=== PATIENT | female | born 1995 | race Caucasian/White ===

== ENCOUNTER 2018-07-07 22:09 | Emergency (ER) | payer OTHER ==
[~2018-07-07] VITALS: Ht 157.5 cm; Wt 50.0 kg
[2018-07-07 22:15] VITALS: Ht 157.5 cm; Wt 50.0 kg
[2018-07-07 22:46] LABS: APPEARANCE SL CLDY (CLEAR); COLOR STRAW (YELLOW); NITRITE NEGATIVE (NEGATIVE); PROTEIN TRACE mg/dL (NEGATIVE); SPECIFIC GRAVITY 1.015 (1.005-1.020)
[2018-07-07 22:47] LABS: BILIRUBIN NEGATIVE (NEGATIVE); GLUCOSE NEGATIVE (NEGATIVE); KETONE NEGATIVE (NEGATIVE); UROBILINOGEN NORMAL (NORMAL)
[2018-07-07 22:49] LABS: BACTERIA MODERATE /hpf (NONE SEEN); EPITHELIAL CELLS 0-5 /hpf (0-5); RED CELLS - URINE 0-5 /hpf (0-5)
[2018-07-07 22:51] LABS: HCG URINE NEGATIVE (NEGATIVE)
[2018-07-07 23:31] LABS: HEMATOCRIT 37.6 % (36.0-48.0); HEMOGLOBIN 12.8 g/dL (12-16); LYMPHOCYTES 20.1 % (15-50); MCH 28.7 pg (26.0-34.0); MCV 84.3 fL (80.0-100.0); MEAN PLATELET VOLUME 8.8 fL (7.4-10.4); NEUTROPHILS 67.8 % (40-80); PLATELET COUNT 354 10x3/uL (130-400); RBC 4.46 10x6/uL (4.00-5.40); WBC 12.7 10x3/uL (4.8-10.8)
[2018-07-07 23:50] LABS: ALKALINE PHOSPHATASE 95 U/L (46-116); ALT (SGPT) 19 U/L (10-68); AMYLASE - SERUM 36 U/L (25-115); BILIRUBIN - TOTAL 0.32 mg/dL (0.2-1.3); CALC OSMOLALITY 275 mosm/kg (275-300); CALCIUM 8.4 mg/dL (8.5-10.1); CARBON DIOXIDE 29.1 mmol/L (21.0-32.0); CHLORIDE - SERUM 102 mmol/L (98-107); CREATININE - SERUM 0.7 mg/dL (0.6-1.3); GLUCOSE 72 mg/dL (74-106); LIPASE 73 U/L (73-393); PROTEIN - SERUM 7.3 g/dL (6.4-8.2); SODIUM 140 mmol/L (136-145); UREA NITROGEN 6 mg/dL (7-18); eGFR NON AFRICAN AMERICAN > 90 mL/min (90-120)
[2018-07-08 02:09] VITALS: BP 110/67
[2018-07-10 15:15] LABS: CHLAMYDIA TRACHOMATIS, NAA Negative (Negative)
== END 2018-07-08 02:09 | disposition home or self-care (01) ==
LOC: D.ER 22:09
PROVIDERS: Family Medicine
DX: K59.00 Constipation, unspecified (principal); N39.0 Urinary tract infection, site not specified

== ENCOUNTER 2020-06-21 00:50 | Observation (INO) | payer OTHER ==
[~2020-06-21] VITALS: Ht 157.5 cm; Wt 68.2 kg
[2020-06-21 01:43] LABS: BASOPHILS 0.3 % (0-2); EOSINOPHILS 2.5 % (0-7); HEMATOCRIT 41.4 % (36.0-48.0); HEMOGLOBIN 13.8 g/dL (12-16); IMMATURE GRANULOCYTES 0.4 % (0-5); LYMPHOCYTE ABS# 1.81 10x3/uL (1.18-3.74); LYMPHOCYTES 15.4 % (15-50); MCH 27.9 pg (26.0-34.0); MCHC 33.3 g/dL (31.0-37.0); MCV 83.6 fL (80.0-100.0); MEAN PLATELET VOLUME 10.8 fL (7.4-10.4); MONOCYTES 11.8 % (2-11); NEUTROPHIL ABS# 8.16 10x3/uL (1.56-6.13); NEUTROPHILS 69.6 % (40-80); PLATELET COUNT 158 10x3/uL (130-400); RBC 4.95 10x6/uL (4.00-5.40); RDW 13.5 % (11.5-14.5); WBC 11.7 10x3/uL (4.8-10.8)
[2020-06-21 01:50] LABS: CALC OSMOLALITY 270 mosm/kg (275-300); CALCIUM 9.5 mg/dL (8.5-10.1); CARBON DIOXIDE 21.9 mmol/L (21.0-32.0); CHLORIDE - SERUM 100 mmol/L (98-107); CREATININE - SERUM 0.7 mg/dL (0.6-1.3); GLUCOSE 88 mg/dL (74-106); POTASSIUM - SERUM 4.1 mmol/L (3.5-5.1); SODIUM 135 mmol/L (136-145); UREA NITROGEN 18 mg/dL (7-18); eGFR NON AFRICAN AMERICAN > 90 mL/min (90-120)
[2020-06-21 01:56] LABS: UDS - AMPHET NEGATIVE QUAL (NEGATIVE); UDS - BARB NEGATIVE QUAL (NEGATIVE); UDS - BENZO NEGATIVE QUAL (NEGATIVE); UDS - COCAINE NEGATIVE QUAL (NEGATIVE); UDS - OPIATE NEGATIVE QUAL (NEGATIVE); UDS - PCP NEGATIVE QUAL (NEGATIVE); UDS - THC NEGATIVE QUAL (NEGATIVE)
[2020-06-21 01:56] LABS: ALBUMIN 2.6 g/dL (3.4-5.0); ALKALINE PHOSPHATASE 223 U/L (30-120); ALT (SGPT) 21 U/L (10-68); BILIRUBIN - TOTAL 0.32 mg/dL (0.2-1.3)
[2020-06-21 02:03] LABS: BILIRUBIN NEGATIVE (NEGATIVE); KETONE NEGATIVE (NEGATIVE); NITRITE NEGATIVE (NEGATIVE); UROBILINOGEN NORMAL mg/dL (< 2)
[2020-06-21 02:04] LABS: BACTERIA FEW HPF (NONE SEEN); SQUAMOUS EPITHELIAL 0-5 HPF (0-4); WHITE CELLS - URINE 0-5 HPF (0-4)
[2020-06-21] MEDS ORDERED: PRENAVITE1 TAB PO (03:38)
[2020-06-21 03:54] VITALS: BP 128/92; Ht 157.5 cm; Wt 68.2 kg
[2020-06-22 08:13] LABS: RAPID PLASMA REAGIN Non Reactive (Non Reactive)
[2020-06-22 10:12] LABS: HGB SOLUBILITY (SICKLE SCREEN) Negative (Negative)
[2020-06-22 11:11] LABS: HEPATITIS C ANTIBODY <0.1 S/CO RAT (0.0-0.9)
[2020-06-22 13:12] LABS: RUBELLA IGG <0.90 index (Immune >0.99)
== END 2020-06-22 01:55 | disposition home or self-care (01) ==
LOC: D.LDO 00:50 → D.LD 02:15 → OBSVTIME 02:15 → D.LD 10:36 → D.LDO 10:36 → D.LD 06-22 01:55 → D.LDO 06-22 01:55
PROVIDERS: ADMIT Obstetrics & Gynecology; ATTEND Obstetrics & Gynecology
DX: O36.8130 Decreased fetal movements, third trimester, not applicable or unspecified (principal); Z3A.37 37 weeks gestation of pregnancy

== ENCOUNTER 2020-06-23 11:15 | Inpatient (IN) | payer OTHER ==
[~2020-06-23] VITALS: Ht 157.5 cm; Wt 71.7 kg
[~2020-06-23 11:15] MED LIST: PRENAVITE1 TAB PO
[2020-06-23 12:56] VITALS: BP 123/92; Ht 157.5 cm; Wt 71.7 kg
[2020-06-23 14:00] LABS: BILIRUBIN NEGATIVE (NEGATIVE); KETONE NEGATIVE (NEGATIVE); NITRITE NEGATIVE (NEGATIVE); UROBILINOGEN NORMAL mg/dL (< 2)
[2020-06-23 14:01] LABS: WHITE CELLS - URINE 0-5 HPF (0-4)
[2020-06-23 14:02] LABS: BACTERIA FEW HPF (NONE SEEN); SQUAMOUS EPITHELIAL 0-5 HPF (0-4)
[2020-06-23 14:05] LABS: UDS - AMPHET NEGATIVE QUAL (NEGATIVE); UDS - BARB NEGATIVE QUAL (NEGATIVE); UDS - BENZO NEGATIVE QUAL (NEGATIVE); UDS - COCAINE NEGATIVE QUAL (NEGATIVE); UDS - OPIATE NEGATIVE QUAL (NEGATIVE); UDS - PCP NEGATIVE QUAL (NEGATIVE); UDS - THC NEGATIVE QUAL (NEGATIVE)
[2020-06-23 14:26] LABS: HEMATOCRIT 35.9 % (36.0-48.0); HEMOGLOBIN 12.1 g/dL (12-16); MCH 28.3 pg (26.0-34.0); MCHC 33.7 g/dL (31.0-37.0); MCV 84.1 fL (80.0-100.0); MEAN PLATELET VOLUME 11.3 fL (7.4-10.4); RBC 4.27 10x6/uL (4.00-5.40); RDW 13.4 % (11.5-14.5); WBC 11.1 10x3/uL (4.8-10.8)
[2020-06-24 06:11] LABS: RAPID PLASMA REAGIN Non Reactive (Non Reactive)
--- NOTE | 2020-06-24 15:58 | NUR ---
VIABLE MALE DELIVERED VIA NVD BY DR. RODRÍGUEZ WITH SPONTANEOUS RESP. 3 VESSEL CORD CLAMPED AND CUT BY . PLACED ON MOM ABDOMEN. MOUTH SUCTIONED WITH BULB SYRINGE. TAKEN TO PRE HEATED WARMER AND DRIED AND STIMULATED. TONE GOOD. RESP 60'S AND UNLABORED WITH NO S/S OF DISTRESS PRESENT AT THIS TIME. COLOR PINK ON R/A. TEMP 98(R).
--- NOTE | 2020-06-24 16:10 | NUR ---
ACTIVE AND ALERT. ID BANDS #[id number] PLACED ON RIGHT ARM AND RIGHT LEG AND ON MOM AND DAD WRIST. HUGS BAND #[id number] PLACED ON INFATN LEFT LEG. SWADDLED IN BLANKET AND HAT ON HEAD. TAKEN TO MOM BY DAD FOR BONDING. INFANT WAS GIVEN AND OR 9 AND 9 WITH 1 OFF FOR COLOR AT 1 MIN AND 5 MIN.
--- NOTE | 2020-06-24 16:54 | NUR ---
D/S 65 MG/DL PER HEEL STICK. TOLERATED WELL. RET TO MOM ARMS FOR FEEDING AND SKIN TO SKIN. TEMP AT THIS TIME 97.6(R).
--- NOTE | 2020-06-24 17:20 | NUR ---
TEMP 97.1(R). MOM FED 10ML FORMULA. TAKEN TO NS AND PLACED UNDER WARMER FOR ADDED WARMTH AND OBSERVATION. FED 10ML FORMULA UNDER WARMER. ALERT AND ACTIVE. COLOR WNL.
[2020-06-24 19:25] VITALS: BP 126/72
--- NOTE | 2020-06-24 19:25 | NUR ---
RN TO PT ROOM FOR SHIFT ASSESSMENT, VSS. PT DENIES ANY PAIN AT THIS TIME. FUNDUS FIRM, MIDLINE, 2 BELOW, SCANT RUBRA LOCHIA, NO CLOTS, PT PROVIDED WITH NEW GOWN, PADS, AND BRIEFS. LINENS CHANGED AT THIS TIME, PT REQUEST ICE WATER, ICE WATER PROVIDED TO PT. PT DENIES ANY OTHER NEEDS. BED IN LOWEST POSITION, SIDE RAILS UPX2, CALL LIGHT IN REACH. INFANT IN NURSERY.
--- NOTE | 2020-06-24 21:32 | NUR ---
RN TO PT BEDSIDE, SIGNIFICANT OTHER ON COUCH, PT SITTING UP IN BED WATCHING TV AT THIS TIME, PT DENIES ANY CURRENT NEEDS.
--- NOTE | 2020-06-24 22:10 | NUR ---
INFANT BACK OUT TO ROOM VIA CRIB AFTER TUBE FEEDING. INSTRUCTED MOM REGARDING REPLACEMENT OF OGT THAT INFANT HAD PULLED AND NGT BEING PLACED TO SEE IF THIS WILL HELP WITH FEEDING.
--- NOTE | 2020-06-24 23:13 | NUR ---
RN TO PT BEDSIDE, PT IN BED HOLDING/BONDING WITH , SIGNIFICANT OTHER AT BEDSIDE. PT DENIES ANY CURRENT NEEDS.
[2020-06-24 23:42] VITALS: BP 121/81
--- NOTE | 2020-06-24 23:42 | NUR ---
RN TO PT BEDSIDE. VSS. PT SITTING UP IN BED WITH IN ARMS. FUNDUS FIRM, MIDLINE, 2 BELOW, SCANT RUBRA LOCHIA, NO CLOTS.
--- NOTE | 2020-06-25 02:58 | NUR ---
RN TO PT BEDSIDE, PT SLEEPING AT THIS TIME, SIGNIFICANT OTHER SLEEPING ON COUCH. INFANT IN CRIB AT BEDSIDE.
[2020-06-25 05:38] LABS: BASOPHILS 0.1 % (0-2); EOSINOPHILS 0.5 % (0-7); HEMATOCRIT 31.9 % (36.0-48.0); HEMOGLOBIN 10.6 g/dL (12-16); IMMATURE GRANULOCYTES 0.3 % (0-5); LYMPHOCYTES 13.8 % (15-50); MCH 27.5 pg (26.0-34.0); MCHC 33.2 g/dL (31.0-37.0); MCV 82.9 fL (80.0-100.0); MEAN PLATELET VOLUME 11.2 fL (7.4-10.4); MONOCYTES 14.6 % (2-11); NEUTROPHIL ABS# 10.73 10x3/uL (1.56-6.13); NEUTROPHILS 70.7 % (40-80); PLATELET COUNT 134 10x3/uL (130-400); RBC 3.85 10x6/uL (4.00-5.40); RDW 13.3 % (11.5-14.5)
[2020-06-25 05:41] LABS: WBC 15.2 10x3/uL (4.8-10.8)
[2020-06-25 05:50] VITALS: BP 120/80
--- NOTE | 2020-06-25 05:59 | NUR ---
RN TO PT BEDSIDE, COMPLETE BEDDING CHANGE AT THIS TIME. PT DENIES ANY OTHER NEEDS. FUNDUS IS FIRM, MIDLINE, 2 BELOW, SCANT RUBRA LOCHIA.
[2020-06-25 07:50] VITALS: BP 123/88
--- NOTE | 2020-06-25 07:50 | NUR ---
PATIENT ASSESSMENT COMPLETED AT PATIENTS BEDSIDE. PATIENT DENIES NEEDS AT THIS TIME. VSS. FUNDUS FIRM AND MIDLINE 1 BELOW UMBILICUS. BLEEDING SCANT TO LIGHT. PLAN OF CARE UPDATED AT PATIENTS BEDSIDE. PATIENT DENIES QUESTIONS OR CONCERNS WITH INFORMATION GIVEN. PATIENT DENIES PAIN. SIDE RAILS UP X2, BED IN LOW POSITION, CALL LIGHT WITHIN REACH.
--- NOTE | 2020-06-25 17:31 | NUR ---
DR DELGADO CALLED AND DISCHARGE HOME WITH ORDER RECEIVED.
--- NOTE | 2020-06-25 18:33 | NUR ---
PATIENT TO BE DISCHARGED HOME IN STABLE CONDITION TO SELF CARE. DISCHARGE INSTRUCTIONS PROVIDED INCLUDING WHEN TO MAKE FOLLOW UP APPOINTMENT. IV REMOVED USING ASPETIC TECHNIQUE. PATIENT DENIES QUESTIONS OR CONCERNS WITH INFORMATION GIVEN.
--- NOTE | 2020-06-25 18:45 | NUR ---
PT. DISCHARGED OUT AMBULATORY PER REQUEST WITH FATHER HOLDING IN [facility].
== END 2020-06-25 18:45 | disposition home or self-care (01) | DRG 807 ==
LOC: D.LD 11:15
PROVIDERS: Obstetrics & Gynecology; ADMIT Student in an Organized Health Care Education/Training Program; ATTEND Student in an Organized Health Care Education/Training Program
PROC: 10E0XZZ Delivery of Products of Conception, External Approach (ICD-10-PCS; principal; 2020-06-24)
PROC: 3E033VJ Introduction of Other Hormone into Peripheral Vein, Percutaneous Approach (ICD-10-PCS; 2020-06-24)
PROC: 10907ZC Drainage of Amniotic Fluid, Therapeutic from Products of Conception, Via Natural or Artificial Opening (ICD-10-PCS; 2020-06-24)
DX: O14.04 Mild to moderate pre-eclampsia, complicating childbirth (principal); Z37.0 Single live birth; Z3A.37 37 weeks gestation of pregnancy; O70.0 First degree perineal laceration during delivery; O99.334 Smoking (tobacco) complicating childbirth; F17.200 Nicotine dependence, unspecified, uncomplicated